=== PATIENT | female | born 1995 | race Caucasian/White ===

== ENCOUNTER 2021-08-06 14:48 | Outpatient (REF) | payer BC, SELFPAY ==
[2021-08-06 14:11] LABS: HCT 44.4 % (36.0-46.0); HGB 14.4 g/dL (11.2-15.7); MCHC 32.4 % (32.0-36.0); MCV 89.3 fL (80-95); MPV 11.8 fL (8.0-11.0); Platelet Count 267 10^3/uL (130-400); RBC 4.97 10^6/uL (3.93-5.22); RDW 12.6 % (11.7-14.6); RDW-SD 41.2 fL
[2021-08-06 15:09] LABS: ALT 29 U/L (14-59); AST 18 U/L (15-37); Albumin 4.3 g/dL (3.4-5.0); Alkaline Phosphatase 89 U/L (46-116); Anion Gap 8.7 mmol/L (3-11); BUN 10 mg/dL (7-18); Bilirubin, Total 1.7 mg/dL (0.2-1.0); CO2 27.3 mmol/L (21.0-32.0); CREATININE 0.7 mg/dL (0.55-1.02); Chloride 105 mmol/L (98-107); Glucose 79 mg/dL (74-106); Potassium 3.9 mmol/L (3.5-5.1); Sodium 141 mmol/L (136-145); Total Protein 7.6 g/dL (6.4-8.2)
[2021-08-07 10:49] LABS: Lyme Ab w Rflx to Lyme Confirm Negative (Negative)
[2021-08-07 12:59] LABS: COVID-19 RT-PCR UVMMC Result Negative (Negative)
== END 2021-08-06 14:49 | disposition home or self-care (01) ==
LOC: LBN 14:48
PROVIDERS: Visit Provider Nurse Practitioner Family
DX: R20.2 Paresthesia of skin (principal); Z20.822 Contact with and (suspected) exposure to COVID-19
CPT/HCPCS: 80053; 85027; U0003; 86618